=== PATIENT | female | born 1970 | race African-American/Black ===

== ENCOUNTER 2018-03-24 13:20 | Emergency (ER) | payer SELFPAY ==
[~2018-03-24] VITALS: Ht 167.6 cm; Wt 162.4 kg
[~2018-03-24 13:20] MED LIST: ALBU18HF IH; CLON1TAB4 PO; CYCL5TAB PO; DIAZ2TAB3 PO; HYDR-2762 PO; HYDR12.58 PO; HYDR25TA9 PO; OMEP20CA9 PO; OXCA600T PO; OXCA600T3 PO; PREN1TAB54 PO; TRAM50TA PO; VENL150C6 PO
[2018-03-24] MEDS ORDERED: LORazepam 2 MG/ML VIAL IM ONE (14:30)
[2018-03-24 14:34] VITALS: BP 159/98
[2018-03-24] MEDS ORDERED: CLON0.5T11 PO (14:36)
--- NOTE | 2018-03-24 14:37 | PHYS DOC ---
Past History Past Medical History: Anxiety, Cancer, Depression, Fibromyalgia, Hypertension, Other Past Surgical History: Hysterectomy, Other Smoking: Non-smoker Alcohol Use: None Drug Use: None General Pediatric Assessment Chief Complaint Anxiety History of Present Illness 47-year-old female patient with history of anxiety state she is visiting this area and missed her flight and unable to get home and didn't take her anxiety medication for the last 1 week and feels very anxious. Patient states she had several bad problem that happened to her in this area and her anxiety getting worse than usual. She denies suicidal and homicidal ideation, chest pain, shortness of breath, nausea and vomiting. Review of Systems Constitutional: Denies fever or chills [] Eyes: Denies change in visual acuity, redness, or eye pain [] HENT: Denies nasal congestion or sore throat [] Respiratory: Denies cough or shortness of breath [] Cardiovascular: No additional information not addressed in HPI [] GI: Denies abdominal pain, nausea, vomiting, bloody stools or diarrhea [] : Denies dysuria or hematuria [] Musculoskeletal: Denies back pain or joint pain [] Integument: Denies rash or skin lesions [] Neurologic: Denies headache, focal weakness or sensory changes [] Endocrine: Denies polyuria or polydipsia [] All other systems were reviewed and found to be within normal limits, except as documented in this note. Current Medications Current Medications Medications (Trade) Dose Ordered Sig/Junaid Start Time Stop Time Status Last Admin Dose Admin Lorazepam (Ativan) 0.5 mg 1X ONCE 03/24/18 14:30 03/24/18 14:31 DC Allergies Allergies Coded Allergies Type Severity Reaction Last Updated Verified Penicillins Allergy Intermediate throat swells up. 10/12/13 Yes Physical Exam Constitutional: Well nourished, mild distress, non-toxic appearance, anxious, morbidly obese HENT: Normocephalic, atraumatic Eyes: PERLL, EOMI, conjunctiva normal, no discharge. Neck: Normal range of motion, no tenderness, supple, no stridor. Cardiovascular: Normal heart rate, normal rhythm, no murmurs, no rubs, no gallops. Thorax and Lungs: Normal breath sounds, no respiratory distress, no wheezing, no chest tenderness, no retractions, no accessory muscle use. Abdomen: Bowel sounds normal, soft, no tenderness, no masses, no pulsatile masses. Skin: Warm, dry, no erythema, no rash. Back: No tenderness, no CVA tenderness. Extremeties: Intact distal pulses, no tenderness, no cyanosis, no clubbing, ROM intact, no edema. Musculoskeletal: Good ROM in all major joints, no tenderness to palpation or major deformities noted. Neurologic: Alert and oriented X 3, normal motor function, normal sensory function, no focal deficits noted. Psychologic: Affect anxious, judgement normal, mood normal. Radiology/Procedures [] Current Patient Data Active Scripts Medications Dose Route/Sig Max Daily Dose Days Date Category Diazepam 2 Mg Tablet 2 Mg PO BID 09/29/13 Reported Venlafaxine Hcl Er (Venlafaxine Hcl) 150 Mg Cap.er.24h 150 Mg PO BID 08/14/13 Reported Hydrochlorothiazide 12.5 Mg Tablet 12.5 Mg PO 08/14/13 Reported Ventolin Hfa (Albuterol Sulfate) 18 Gm Hfa.aer.ad 18 Gm IH 08/14/13 Reported Oxcarbazepine 600 Mg Tablet 600 Mg PO TID 08/14/13 Reported Hydrochlorothiazide 25 Mg Tablet 25 Mg PO 08/14/13 Reported Vital Signs Date Time Temp Pulse Resp B/P (MAP) Pulse Ox O2 Delivery O2 Flow Rate FiO2 03/24/18 13:30 98.5 90 20 97 Room Air 03/24/18 14:01 157/86 (109) Vital Signs Date Time Temp Pulse Resp B/P (MAP) Pulse Ox O2 Delivery O2 Flow Rate FiO2 03/24/18 14:01 87 20 157/86 (109) 100 Room Air 03/24/18 13:30 98.5 90 20 97 Room Air Vital Signs Date Time Temp Pulse Resp B/P (MAP) Pulse Ox O2 Delivery O2 Flow Rate FiO2 03/24/18 14:01 87 20 157/86 (109) 100 Room Air 03/24/18 13:30 98.5 Course & Med Decision Making discharge: I've spoken with the patient and/or caregivers. I've explained the patient's condition, diagnosis and treatment plan based on information available to me at this time. I've answered the patient's and/or caregivers questions and addressed any concerns. The patient and/or caregivers have a good understanding the patient's diagnosis, condition and treatment plan as can be expected at this point. Vital signs have been stabilized. The patient's condition is stable for discharge from the emergency department. The patient will pursue further outpatient evaluation with her primary care provider or other designated consulting physician as outlined in the discharge instructions. Patient and/or caregivers are agreeable to this plan of care and follow-up instructions have been explained in detail. The patient and/or caregivers have received these instructions in written format and expressed understanding of these discharge instructions. The patient and her caregivers are aware that if any significant change in condition or worsening of symptoms should prompt him to immediately return to this of the closest emergency department. If an emergent department is not readily available I would encourage him to call 911. Departure Departure: Impression: Primary Impression: Anxiety attack Additional Impression: Medication refill Disposition: HOME, SELF-CARE (at 1440) Condition: IMPROVED Referrals: NON,STAFF (PCP) Patient Instructions: Anxiety and Panic Attacks Additional Instructions: Drink plenty of liquids Follow-up with your primary care physician in 2-3 days of anxiety medication refill Return to ER if not getting better Scripts Clonazepam (CLONAZEPAM) 0.5 Mg Tablet 1 TAB PO BID PRN for ANXIETY, #8 TAB Prov: GARIMA CONTRERAS MD 03/24/18 Problem Qualifiers GARIMA CONTRERAS MD Mar 24, 2018 14:37
== END 2018-03-24 14:39 | disposition home or self-care (01) ==
LOC: ER 13:20
DX: F41.9 Anxiety disorder, unspecified (principal); Z76.0 Encounter for issue of repeat prescription; F32.9 Major depressive disorder, single episode, unspecified; M79.7 Fibromyalgia; I10 Essential (primary) hypertension; Z88.0 Allergy status to penicillin
CPT/HCPCS: 96372; 99284; J2060